=== PATIENT | male | born 1965 | race Caucasian/White ===

== ENCOUNTER 2019-11-25 15:56 | Inpatient (IN) ==
[2019-11-25] MEDS ORDERED: ONDANSETRON 4 MG/2 ML VIAL IV ONE (16:40)
[2019-11-25] MEDS ORDERED: PANTOPRAZOLE 40 MG VIAL IV STA (16:40)
[2019-11-25 17:14] LABS: Basophils % 0.3 % (0.0-0.8); Eosinophils % 0.1 % (0.00-10.9); Hemoglobin 19.7 GM/DL (14.0-18.0); Immature Granulocytes % 0.4 %; Immature Granulocytes Absolute 0.06 #; Lymphocytes # 1.1 10*3/uL (1.4-4.0); Lymphocytes % 7.1 % (21.2-54.2); Mean Corpuscular HGB Conc 32.6 GM/DL (32-36); Mean Corpuscular Volume 88.7 FL (87-102); Mean Platelet Volume 10.3 FL (9.6-12.0); Monocytes % 7.8 % (1.7-12.7); Neutrophils % 84.3 % (38.7-73.9); Platelet Count 387 T/CUMM (130-400); Red Blood Count 6.82 MC/CUMM (3.8-5.5); Red Cell Distribution Width 17.3 % (9.3-17.3); White Blood Count 14.8 T/CUMM (4-12)
[2019-11-25 17:22] LABS: Hematocrit 60.5 VOL% (42.0-52.0)
[2019-11-25 18:04] LABS: Albumin 3.1 G/DL (3.4-5.0); Bilirubin,Total 0.7 MG/DL (0.2-1.0); Calcium 9.3 MG/DL (8.5-10.1); Osmolality,Calculated 268.1 MOS/KG (273-304); Total Protein 7.4 G/DL (6.4-8.3)
[2019-11-25] MEDS ORDERED: ONDANSETRON 4 MG/2 ML VIAL IV PRN (21:12)
[2019-11-25] MEDS ORDERED: MORPHINE 4 MG/1 ML VIAL IV PRN (21:12)
[2019-11-25] MEDS: ceFAZolin 1,000 MG in SYRINGE 1 EACH IV SCH (22:59)
[2019-11-25] MEDS: SODIUM CHLORIDE 0.9% 1,000 ML IV SCH (22:59)
[2019-11-25] MEDS: metroNIDAZOLE INJ 500 MG in PREMIX 1 EACH IV SCH (23:00)
[2019-11-26 03:52] LABS: Basophils % 0.2 % (0.0-0.8); Eosinophils # 0.1 10*3/uL (0.0-0.87); Eosinophils % 0.5 % (0.00-10.9); Hematocrit 54.7 VOL% (42.0-52.0); Hemoglobin 17.5 GM/DL (14.0-18.0); Immature Granulocytes % 0.3 %; Immature Granulocytes Absolute 0.04 #; Lymphocytes # 1.5 10*3/uL (1.4-4.0); Lymphocytes % 11.9 % (21.2-54.2); Mean Corpuscular Volume 88.9 FL (87-102); Mean Platelet Volume 10.1 FL (9.6-12.0); Monocytes % 9.5 % (1.7-12.7); Neutrophils % 77.6 % (38.7-73.9); Platelet Count 353 T/CUMM (130-400); Red Blood Count 6.15 MC/CUMM (3.8-5.5); Red Cell Distribution Width 16.9 % (9.3-17.3); White Blood Count 12.5 T/CUMM (4-12)
[2019-11-26 04:38] LABS: Albumin 3.1 G/DL (3.4-5.0); Bilirubin,Total 0.5 MG/DL (0.2-1.0); Calcium 8.6 MG/DL (8.5-10.1); Osmolality,Calculated 274.5 MOS/KG (273-304); Total Protein 7.2 G/DL (6.4-8.3)
[2019-11-26] MEDS: ceFAZolin 1,000 MG in SYRINGE 1 EACH IV SCH ×2 (05:46→16:33)
[2019-11-26] MEDS: metroNIDAZOLE INJ 500 MG in PREMIX 1 EACH IV SCH ×2 (05:46→16:33)
[2019-11-26] MEDS: SODIUM CHLORIDE 0.9% 1,000 ML IV SCH ×2 (08:35→16:32)
[2019-11-26] MEDS: ENOXAPARIN 40 MG/0.4 ML SYRINGE SUBCUT SCH (09:10)
[2019-11-26] MEDS ORDERED: hydrALAZINE 20 MG/1 ML VIAL IV PRN (13:38)
[2019-11-26] MEDS ORDERED: hydrALAZINE 20 MG/1 ML VIAL IV ONE (14:30)
[2019-11-26 16:42] LABS: Apearance,Urine CLEAR (Clear); Bacteria,Urine Occasional /HPF (Few); Bilirubin,Urine Negative (Negative); Blood, Urine Negative (Negative); Glucose,Urine (UA) Negative (Negative); Ketones,Urine 5 mg/dL (Negative); Mucus,Urine Occasional /LPF (Occasional); Nitrite,Urine Negative (Negative); Protein,Urine Negative; RBC,Urine 6 /HPF (0-4); Squamous Epithelial Cell,Urine Occasional /HPF (0-10); Urine Color Yellow (Yellow); Urine Specific Gravity 1.021 (1.001-1.035); Urine Urobilinogen < 2.0 EU/DL (0.2-1.0); WBC,Urine 7 /HPF (0-6)
[2019-11-26 20:35] LABS: Barbiturates Screen,Urine Negative (Negative); Benzodiazepines Screen,Urine Negative (Negative); Cannabinoid Screen,Urine Negative (Negative); Opiate Screen,Urine Negative (Negative); Phencyclidine Screen,Urine Negative (Negative)
[2019-11-27] MEDS: SODIUM CHLORIDE 0.9% 1,000 ML IV SCH ×3 (00:49→14:34)
[2019-11-27] MEDS: ceFAZolin 1,000 MG in SYRINGE 1 EACH IV SCH ×3 (00:50→16:48)
[2019-11-27] MEDS: metroNIDAZOLE INJ 500 MG in PREMIX 1 EACH IV SCH ×3 (00:58→16:48)
[2019-11-27 07:32] LABS: Basophils % 0.3 % (0.0-0.8); Eosinophils # 0.1 10*3/uL (0.0-0.87); Hematocrit 52.6 VOL% (42.0-52.0); Hemoglobin 16.6 GM/DL (14.0-18.0); Immature Granulocytes % 0.4 %; Immature Granulocytes Absolute 0.04 #; Lymphocytes # 1.3 10*3/uL (1.4-4.0); Lymphocytes % 13.9 % (21.2-54.2); Mean Corpuscular HGB Conc 31.6 GM/DL (32-36); Mean Corpuscular Volume 90.2 FL (87-102); Mean Platelet Volume 9.6 FL (9.6-12.0); Monocytes % 9.2 % (1.7-12.7); Neutrophils % 75.2 % (38.7-73.9); Platelet Count 292 T/CUMM (130-400); Red Blood Count 5.83 MC/CUMM (3.8-5.5); Red Cell Distribution Width 15.8 % (9.3-17.3); White Blood Count 9.4 T/CUMM (4-12)
[2019-11-27 07:50] LABS: Albumin 2.9 G/DL (3.4-5.0); Bilirubin,Total 0.6 MG/DL (0.2-1.0); Calcium 8.6 MG/DL (8.5-10.1); Osmolality,Calculated 267.1 MOS/KG (273-304); Total Protein 6.9 G/DL (6.4-8.3)
[2019-11-27] MEDS: ENOXAPARIN 40 MG/0.4 ML SYRINGE SUBCUT SCH (08:36)
[2019-11-27 15:28] VITALS: BP 145/96
== END 2019-11-27 19:45 | disposition left against medical advice (07) | DRG 389 ==
LOC: N.ED 15:56 → N.EDINP 18:23 → SUATTDRO 18:23 → N.2W 21:08
PROVIDERS: ADMIT Internal Medicine; ATTEND Internal Medicine